=== PATIENT | female | born 1955 | race Caucasian/White ===

== ENCOUNTER 2022-05-25 07:14 | Day surgery (SDC) | payer OTHER ==
[~2022-05-25] VITALS: Ht 149.9 cm; Wt 55.6 kg
[2022-05-25] MEDS ORDERED: MEPERIDINE 50 MG/ML VIAL ONE (07:35)
[2022-05-25] MEDS ORDERED: MIDAZOLAM HCL 5 MG/5 ML VIAL ONE (07:35)
[2022-05-25 11:56] VITALS: BP_SYST 155
== END 2022-05-25 10:15 | disposition home or self-care (01) ==
LOC: SDS 07:14 → SMU 07:20 → SDS 10:15
PROVIDERS: ATTEND Internal Medicine Gastroenterology
DX: R10.13 Epigastric pain (principal); K29.50 Unspecified chronic gastritis without bleeding; K44.9 Diaphragmatic hernia without obstruction or gangrene; I10 Essential (primary) hypertension; E11.9 Type 2 diabetes mellitus without complications; E78.5 Hyperlipidemia, unspecified; Z79.82 Long term (current) use of aspirin; Z79.4 Long term (current) use of insulin; Z79.899 Other long term (current) drug therapy; Z20.822 Contact with and (suspected) exposure to COVID-19
CPT/HCPCS: 36415; 43239; 82962; 87081; 88305; 88312; 88313; J2175; J2250